=== PATIENT | male | born 1960 | race African-American/Black ===

== ENCOUNTER 2019-10-25 09:57 | Emergency (ER) | payer OTHER ==
[2019-10-25 10:02] VITALS: BP 140/77
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
== END 2019-10-25 10:35 | disposition home or self-care (01) ==
LOC: ER 09:57
DX: M54.9 Dorsalgia, unspecified (principal); M54.5 Low back pain; V49.40XA Driver injured in collision with unspecified motor vehicles in traffic accident, initial encounter; F17.210 Nicotine dependence, cigarettes, uncomplicated; I10 Essential (primary) hypertension
CPT/HCPCS: 99283